=== PATIENT | female | born 1980 | race Caucasian/White ===

== ENCOUNTER 2020-04-15 12:27 | Emergency (ER) | payer BC ==
[~2020-04-15] VITALS: Ht 152.4 cm; Wt 88.1 kg
[2020-04-15 12:36] VITALS: BP 151/94
[2020-04-15] MEDS ORDERED: LIDOCAINE 2% 20 ML VIAL. ONE (12:44)
[2020-04-15] MEDS ORDERED: DIPH,PERTUSS(ACELL),TET VAC/PF 0.5 ML SYRINGE. VAX IM ONE (13:00)
[2020-04-15] MEDS ORDERED: NEOMY/BACITR/POLYMYXIN OINT PACKET. TP ONE (13:00)
[2020-04-15] MEDS ORDERED: LIDOCAINE 2%/EPI 1:100,000 20 ML VIAL. IJ ONE (13:00)
--- NOTE | 2020-04-15 13:25 | PHYS DOC ---
General Adult EDM: Chief Complaint: LACERATION/AVULSION HPI: HPI: Patient is a [age] year old [sex] who presents with [] Review of Systems: Review of Systems: Constitutional: Denies fever or chills Eyes: Denies redness or eye pain HENT: Denies nasal congestion or sore throat Respiratory: Denies cough or shortness of breath Cardiovascular: Denies chest pain or palpitations GI: Denies abdominal pain, nausea, or vomiting : Denies dysuria or hematuria Musculoskeletal: Denies back pain or joint pain Integument: Denies rash or skin lesions Neurologic: Denies headache, focal weakness or sensory changes Complete systems were reviewed and found to be within normal limits, except as documented in this note. Current Medications: Current Meds: Current Medications Medications (Trade) Dose Ordered Sig/Fito Start Time Stop Time Status Last Admin Dose Admin Diphtheria/ Pertussis/Tetanus Vacc (ADACEL TDap SYRINGE) 0.5 ml ONCE ONCE 04/15/20 13:00 04/15/20 13:01 DC Lidocaine HCl 20 ml STK-MED ONCE 04/15/20 12:44 04/15/20 12:44 DC Lidocaine/ Epinephrine (Xylocaine 2%-Epi 1:100,000) 20 ml 1X ONCE 04/15/20 13:00 04/15/20 13:01 DC Neomycin/ Polymyxin/ Bacitracin (Triple Antibiotic Ointment) 1 pkt 1X ONCE 04/15/20 13:00 04/15/20 13:01 DC Allergies: Allergies: Allergies Coded Allergies Type Severity Reaction Last Updated Verified No Known Drug Allergies 04/15/20 No Physical Exam: PE: Constitutional: Well developed, well nourished, no acute distress, non-toxic appearance HENT: Normocephalic, atraumatic, oropharynx moist Eyes: PERRL, EOMI, conjunctiva normal, no discharge Neck: Normal range of motion, no tenderness, supple Cardiovascular: Heart rate normal, regular rhythm Lungs & Thorax: Bilateral breath sounds clear to auscultation, no wheezing Abdomen: Soft, no tenderness Skin: Warm, dry, no erythema, no rash Back: No tenderness, no CVA tenderness Extremities: No tenderness, ROM intact, no edema Neurologic: Alert and oriented X 3, normal motor function, normal sensory function, no focal deficits noted Psychologic: Affect normal, judgment normal EKG: EKG: [] Radiology/Procedures: Radiology/Procedures: [] Course & Med Decision Making: Course & Med Decision Making Patient stable for discharge with outpatient follow-up with PCP. Discussed fin miguel and plan with patient, who acknowledges understanding and agreement. Steven Disclaimer: Steven Disclaimer: This electronic medical record was generated, in whole or in part, using a voice recognition dictation system. Laceration/Wound Repair Laceration/Wound Repair : Wound Location: lower extremity (right foot) Wound Length (cm): 3 Wound Explored: clean Irrigated w/ Saline (ccs): 200 Anesthesia: Lidocaine w/ Epi (2%) Volume Anesthetic (ccs): 2 Wound Debrided: minimal Wound Repaired With: sutures Suture Size/Type: 4:0, nylon Number of Sutures: 5 Sterile Dressing Applied?: Yes Progress Verbal consent obtained. Time out performed. Hand hygiene utilized. Wound cleaned with ChloraPrep. Anesthesia obtained via a 25-gauge hypodermic needle with (2) mL's of lidocaine 2% with epinephrine. Copious irrigation performed. Wound well approximated with 4-0 Nylon x 5 simple interrupted. Patient tolerated procedure well and without difficulty. Empiric antibiotic ointment applied prior to sterile dressing. Departure Departure: Impression: Primary Impression: Foot laceration Qualified Codes: S91.311A - Laceration without foreign body, right foot, initial encounter Disposition: 01 HOME/RESIDENCE PRIOR TO ADM Condition: STABLE Referrals: PCP,NO (PCP) Patient Instructions: Laceration Care, Adult, [id number] Additional Instructions: Do not soak your wound. You may shower. Clean wound daily with soap and water. Change dressing 2 times daily. Use over the counter antibiotic ointment with each dressing change. Sutures need to be removed in 7-10 days. Present to your family doctor or local urgent care for removal. You may also present to the ED but it will be an additional visit/charge. After suture removal you may use Vitamin E ointment to soften the wound and prevent scarring. Use over the counter Tylenol and/or Ibuprofen for pain or discomfort. Justification of Admission: Justification of Admission: Justification of Admission Dx: N/A ANT PALOMINO DO Apr 15, 2020 13:25
== END 2020-04-15 13:37 | disposition home or self-care (01) ==
LOC: ER 12:27
DX: S91.311A Laceration without foreign body, right foot, initial encounter (principal); W27.8XXA Contact with other nonpowered hand tool, initial encounter; Y93.89 Activity, other specified; Y92.89 Other specified places as the place of occurrence of the external cause; Y99.8 Other external cause status
CPT/HCPCS: 12002; 90471; 90715; 99283